=== PATIENT | female | born 1975 | race Caucasian/White ===

== ENCOUNTER 2017-02-15 19:12 | Emergency (ER) | payer MEDICARE ==
[2017-02-15 22:55] LABS: HEMOGLOBIN 11.9 gm/dl (12.3-15.3); RED BLOOD COUNT 4.35 M/UL (4.00-5.10)
[2017-02-15 23:09] LABS: BUN/CREATININE RATIO 15 (0-10)
== END 2017-02-16 00:50 | disposition home or self-care (01) ==
LOC: ER1 19:12
PROVIDERS: Emergency Medicine
DX: K80.50 Calculus of bile duct without cholangitis or cholecystitis without obstruction (principal)
CPT/HCPCS: 36415; 80053; 81001; 83690; 85025; 93005; 99284